=== PATIENT | female | born 1995 ===

== ENCOUNTER 2024-10-28 20:11 | Inpatient (IN) | payer OTHER ==
[2024-10-28] MEDS ORDERED: Misoprostol 200 MCG Tab PO PRN (20:45)
[2024-10-28] MEDS ORDERED: Lidocaine 1% 50 ML MDV INJECT PRN (20:45)
[2024-10-28] MEDS ORDERED: Carboprost Tromethamine 250 MCG/1 mL Vial IM PRN (20:45)
[2024-10-28] MEDS ORDERED: Water For Irrigation,Sterile 1,000 ML Container IRR PRN (20:45)
[2024-10-28] MEDS ORDERED: Lactated Ringers 1,000 ML IV SCH (20:45)
[2024-10-28] MEDS ORDERED: Sodium Chloride 0.9% 2.5 ML Syringe FLUSH PRN (20:45)
[2024-10-28] MEDS ORDERED: Tranexamic Acid in NACL,ISO-OS 1,000 MG in Premix Bag 1 BAG IV PRN (20:45)
[2024-10-28] MEDS ORDERED: Butorphanol 2 MG/ML SDV IVPUSH PRN (20:45)
[2024-10-28] MEDS ORDERED: Methylergonovine 0.2 MG/1 ML Amp IM PRN (20:45)
[2024-10-28] MEDS ORDERED: Sodium Chloride 0.9% 10 ML Syringe FLUSH PRN (20:45)
[2024-10-28] MEDS ORDERED: Ondansetron 4 MG/2 ML SDV IVPUSH PRN (20:45)
[2024-10-28 22:16] LABS: HEMATOCRIT 38.9 % (37.0-47.0); HEMOGLOBIN 13.3 g/dL (12.0-16.0); MEAN CORPUSCULAR HEMOGLOBIN 30.6 pg (28.0-32.0); MEAN CORPUSCULAR HGB CONC 34.2 g/dL (32.0-36.0); MEAN CORPUSCULAR VOLUME 89.6 fL (83.0-99.0); MEAN PLATELET VOLUME 13.1 fL (9.4-12.3); PLATELET COUNT,PLT 136 K/uL (150-400); RED BLOOD CELL COUNT 4.34 M/uL (4.10-5.30); WHITE BLOOD CELL COUNT,WBC 11.52 K/uL (3.9-11.3)
[2024-10-28 22:38] LABS: A/G RATIO 0.9 (0.9-1.6); ALANINE AMINOTRANSFERASE,ALT 22 IU/L (14-63); ALBUMIN 2.9 g/dL (3.4-5.0); ALKALINE PHOSPHATASE 105 U/L (46-116); ASPARTATE AMNIOTRANSFERASE,AST 23 IU/L (15-37); BILIRUBIN TOTAL 0.2 mg/dL (0.2-1.0); BLOOD UREA NITROGEN,BUN 13 mg/dL (7.0-18.0); CALCIUM 8.8 mg/dL (8.5-10.1); CARBON DIOXIDE,CO2 23.5 mmol/L (21.0-32.0); CHLORIDE,CL 105 mmol/L (98-107); CREATININE 0.8 mg/dL (0.6-1.0); GLUCOSE RANDOM 97 mg/dL (74-106); POTASSIUM,K 3.8 mmol/L (3.5-5.1); PROTEIN TOTAL,TP 6.3 g/dL (6.4-8.2); SODIUM,NA 139 mmol/L (136-145)
[2024-10-28 22:39] LABS: ESTIMATED GFR 103 mL/min (>60)
[2024-10-28 22:40] LABS: APPEARANCE,URINE CLEAR; BILIRUBIN,URINE NEGATIVE (NEGATIVE); COLOR,URINE YELLOW; GLUCOSE,URINE NEGATIVE (NEGATIVE); KETONES,URINE NEGATIVE (NEGATIVE); LEUKOCYTE ESTERASE,URINE NEGATIVE (NEGATIVE); NITRITE,URINE NEGATIVE (NEGATIVE); OCCULT BLOOD,URINE MODERATE (NEGATIVE); PH,URINE 6.5 (5.0-8.0); PROTEIN,URINE NEGATIVE (NEGATIVE); UROBILINOGEN,URINE 0.2 EU/dL (<2.0)
[2024-10-28 22:57] LABS: CREATININE,URINE RAND 25.9 mg/dL; PROTEIN,URINE RANDOM < 6.0 mg/dL (<11.9)
[2024-10-28] MEDS ORDERED: dexmedeTOMIDine HCl 200 MCG/2 ML SDV ONE (23:06)
[2024-10-28] MEDS ORDERED: Phenylephrine HCl In 0.9% NaCl 1 MG/10 ML Syringe ONE (23:06)
[2024-10-28] MEDS ORDERED: Ropivacaine HCl/PF 200 ML ONE (23:06)
[2024-10-28] MEDS ORDERED: ePHEDrine 50 MG/ML SDV IVPUSH PRN (23:12)
[2024-10-28] MEDS ORDERED: Phenylephrine HCl In 0.9% NaCl 1 MG/10 ML Syringe IVPUSH PRN (23:12)
[2024-10-28] MEDS ORDERED: dexmedeTOMIDine HCl 200 MCG/2 ML SDV EPIDUR SCH (23:15)
[2024-10-28] MEDS ORDERED: Ropivacaine HCl/PF 400 MG in Premix Bag 1 BAG EPIDUR SCH (23:15)
[2024-10-29] MEDS: Oxytocin/0.9 % Sodium Chloride 30 UNIT/500 ML BAG IV SCH (01:00)
[2024-10-29] MEDS ORDERED: Lanolin 100% Cream 7 GM Tube TOP PRN (01:12)
[2024-10-29] MEDS: Ibuprofen 800 MG Tab PO PRN (01:55)
[2024-10-29] MEDS: Acetaminophen 500 MG Tab PO PRN (04:59)
[2024-10-29] MEDS: Benzocaine/Menthol 20%-0.5% Spray 78 GM Cannister TOP PRN (05:00)
[2024-10-29] MEDS: Witch Hazel Medicated Pads 40/Jar TOP PRN (05:01)
[2024-10-29] MEDS: Prenatal Multivitamin with Calcium/Folic Acid/Iron Tab PO SCH (08:53)
[2024-10-29] MEDS: Docusate Sodium 100 MG Cap PO PRN (08:53)
[2024-10-29] MEDS ORDERED: Cetirizine 10 MG Tab PO SCH (09:00)
[2024-10-30 05:40] LABS: HEMATOCRIT 38.2 % (37.0-47.0); HEMOGLOBIN 12.2 g/dL (12.0-16.0)
== END 2024-10-30 10:05 | disposition home or self-care (01) | DRG 807 ==
LOC: MW.OBCHECK 20:11 → MW.OB 20:16 → MW.OBCHECK 21:05 → MW.OB 21:06 → OBSVTOIN 10-29 00:57 → MW.OB 10-29 05:05
PROVIDERS: ADMIT Obstetrics & Gynecology Gynecology; ATTEND Obstetrics & Gynecology Gynecology
PROC: 10E0XZZ Delivery of Products of Conception, External Approach (ICD-10-PCS; principal; 2024-10-29)
PROC: 10907ZC Drainage of Amniotic Fluid, Therapeutic from Products of Conception, Via Natural or Artificial Opening (ICD-10-PCS; 2024-10-29)
PROC: 3E0S3BZ Introduction of Anesthetic Agent into Epidural Space, Percutaneous Approach (ICD-10-PCS; 2024-10-29)
PROC: 00HU33Z Insertion of Infusion Device into Spinal Canal, Percutaneous Approach (ICD-10-PCS; 2024-10-29)
DX: O42.02 Full-term premature rupture of membranes, onset of labor within 24 hours of rupture (principal); Z37.0 Single live birth; Z3A.38 38 weeks gestation of pregnancy
CPT/HCPCS: 01967; 36415; 59025; 59409; 80053; 81003; 82570; 84156; 85014; 85018; 85027; 86592; 86850; 86900; 86901; A9270-GY; J2371; J2590; J2795